=== PATIENT | female | born 1960 | race Caucasian/White ===

== ENCOUNTER → 2016-12-08 | Day surgery (SDC) | payer OTHER ==
[2016-11-16 12:05] VITALS: BMI 42.0
[2016-11-27 13:52] VITALS: Ht 162.6 cm; Wt 110.4 kg
--- NOTE | 2016-11-27 14:15 | PAT Medication Instructions ---
Service Date November 27, 2016. Current Home Medication List Acetaminophen (Tylenol), 2 TABS PO Q6H PRN for Pain Clindamycin Hcl (Cleocin), 4 TABS PO UD PRN for DENTAL PROCEDURES Epinephrine (Epipen), 0.3 MG IM UD PRN for ALLERGIC REACTION Fluticasone Propionate (Nasal) (Flonase Allergy Relief), 2 SPRAYS MICHAEL DAILY PRN for PRN Metoprolol Succ (Toprol Xl) (Toprol-Xl), 50 MG PO QAM Multivitamin (Multivitamin), 1 TAB PO QAM Pantoprazole (Protonix), 20 MG PO QAM Rizatriptan Benzoate (Maxalt), 5 MG PO DAILY PRN for Migraine Medication Instructions For Your Scheduled Surgery - Hold the following medications the morning of surgery: Multivitamin (Multivitamin), 1 TAB PO QAM - Take the following medications the morning of surgery with a sip of water OTHERWISE NOTHING TO EAT OR DRINK AFTER MIDNIGHT: Acetaminophen (Tylenol), 2 TABS PO Q6H PRN for Pain (may take if needed up to 4 hours prior to surgery) Fluticasone Propionate (Nasal) (Flonase Allergy Relief), 2 SPRAYS MICHAEL DAILY PRN for PRN Metoprolol Succ (Toprol Xl) (Toprol-Xl), 50 MG PO QAM Pantoprazole (Protonix), 20 MG PO QAM Rizatriptan Benzoate (Maxalt), 5 MG PO DAILY PRN for Migraine - Take the following medications as scheduled the night before surgery: Acetaminophen (Tylenol), 2 TABS PO Q6H PRN for Pain If you have any questions please call us at [phone] or [phone] or [phone]
[2016-11-27 15:21] LABS: HEMATOCRIT 40.9 % (37-47); MEAN CELL VOLUME 83.8 fL (80-100); MEAN CORPUSCULAR HEMOGLOBIN 26.4 pg (25-34); MEAN CORPUSCULAR HGB CONC 31.5 g/dl (32-36); MEAN PLATELET VOLUME 9.8 fL (7.4-10.4); PLATELET COUNT 267 K/uL (130-400); RED BLOOD COUNT 4.88 M/uL (4.2-5.4); WHITE BLOOD COUNT 7.92 K/uL (4.8-10.8)
[~2016-12-08] VITALS: Ht 162.6 cm; Wt 110.4 kg
[~2016-12-08] MED LIST: ACET-1256 PO; BUPIVACAINE/EPINEPHRINE 0.5% MPF 1:200,000 30 ML VIAL ONE; CLIN150C PO; CLINDAMYCIN 900MG IV SCH; CLINDAMYCIN IV SCH; D5W IV SCH; DEXAMETHASONE SOD INJ 4 MG/ML VIAL ONE; EPP3/2 IM; EpHEDrine SULFATE INJ 50 MG/ML AMP IV PRN; FENTANYL CITRATE INJ 50 MCG/1 ML 2 ML VIAL ONE; FLUMAZENIL 0.1 MG/1 ML 10 ML VIAL IV PRN; FLUT0.15 NAE; HYDROmorphone INJ 1 MG/ML SYR IV PRN; LABETALOL HCL IV 5 MG/ML 20ML IV PRN; LACTATED RINGER'S 1000ML 1,000 ML IV SCH; LIDOCAINE HCL 2% 2 ML VIAL (20MG/ML) ONE; METO50TA7 PO; MIDAZOLAM HCL 1 MG/ML 2ML VIAL ONE; MULT-506 PO; MoRPHine SULFATE PF 1 MG/ML 10 ML AMP/VIAL ONE; NALOXONE HCL 0.4 MG/1 ML VIAL/CARP IV PRN; ONDANSETRON INJ 2 MG/ML 2 ML VIAL IV PRN; ONDANSETRON INJ 2 MG/ML 2 ML VIAL ONE; OXYCODONE/ACETAMINOPHEN 5-325 TAB PO PRN; PROMETHAZINE HCL INJ 12.5 MG in SODIUM CHLORIDE 0.9% 50ML 50 ML IV PRN; PROPOFOL IV EMULSION 10 MG/ML 20 ML VIAL IV ONE; PRT/20 PO; RIZA5TAB10 PO; SODIUM CHLORIDE 0.9% 1000ML 1,000 ML IV SCH
--- NOTE | 2016-12-08 06:48 | History & Physical Bridge Note ---
H&P Re-Evaluation Bridge Note: I have examined the patient, reviewed the History & Physical and in the interval since the performance of the History & Physical I have noted the following changes of clinical significance: No changes noted
--- NOTE | 2016-12-08 06:50 | Discharge Instructions ---
Discharge Instructions Date of Service Dec 08, 2016. Visit Reason for Visit: Left Knee Lateral Meniscus Tear Discharge Discharge Diagnosis / Problem: same/djd Discharge Goals Goal(s): Decrease discomfort, Improve function Medications Stopped Medications Name(s): na Restart Stopped Medication(s): use all scripts as directed Activity Recommendations Activity Limitations: as noted below Lifting Limitations: until after follow-up appointment Exercise/Sports Limitations: until after follow-up appointment May Resume Sexual Activity: when tolerated Shower/Bathe: keep incision dry Driving or Machine Use: resume 1 day after discharge Weightbearing Status: Left weightbearing (as tolerated) Anesthesia . Post Anesthesia Instructions: If you have had General Anesthesia or IV Sedation: * Do not drive today. * Resume driving when surgeon permits. * Do not make important decisions or sign legal documents today. * Call surgeon for: 1. Temperature elevations greater than 101 degrees F. 2. Uncontrollable pain. 3. Excessive bleeding. 4. Persistent nausea and vomiting. 5. Medication intolerance (nausea, vomiting or rash). * For nausea and vomiting use only clear liquids such as: tea, soda, bouillon until nausea subsides, then gradually increase diet as tolerated. * If you have any concerns or questions, call your surgeon's office. If physician is unavailable and it is an emergency, call 911 or go to the nearest emergency room. . Instructions / Follow-Up Instructions / Follow-Up The following are instructions to follow after your Arthroscopic Knee Surgery. ACTIVITY RECOMMENDATIONS: * Minimize activity until your first visit after surgery. * No excessive walking, jogging, sports or laboring. * Return to activity is individualized. Most patients are able to return to every day activities within one month. * Return to sports or intensive labor usually occurs at 2-3 months. * Driving is not permitted until at least your first postoperative visit at a minimum. Please ask your doctor when it is safe to resume driving. If you have an automatic vehicle and your left leg has been operated on, then you may begin driving as soon as you are comfortable and can drive safely. SCHOOL/WORK RECOMMENDATIONS: * You may return to sedentary work or school when you are feeling more comfortable. This is usually 3-7 days after surgery. * Expect increased discomfort with increased activity. Continue to elevate and ice the leg as much as possible. MEDICATIONS: * You will have a prescription for pain medication and an anti-inflammatory medication after surgery. * Use the pain medication for severe pain and the anti-inflammatory for less severe pain. Once the pain medication has run out, try to use the anti-inflammatory medication. If this is not effective, contact the office for assistance. * The pain medication may cause nausea, constipation and drowsiness. You should see how they affect you before driving or similar activity. * The anti-inflammatory medication may cause stomach upset and bleeding. If this occurs let your doctor know immediately . * Take a stool softener like Colace or a laxative like Senokot to prevent constipation. DIET: * Resume previous diet. SPECIAL CARE: ICE: You have the option of an ice cooler, gel packs or ice bags. * If you have an ice cooler, refer to the instructions for that device. The ice cooler may be used continuously. * If you do not have an ice cooler, you will need to use ice bags or gel packs. Do not apply ice directly to the skin. Use a thin dressing or miguel shirt between the skin and ice bag. Apply ice for 20-30 minutes and repeat every 2-4 hours. This is especially important for the first 7-10 days after surgery. Once the pain improves, use ice as needed. ELEVATION: * Keep your leg elevated at or above the level of your heart as much as possible. * Expect some increased discomfort and swelling if you are standing for any length of time. * When lying down, avoid placing anything under your knee. Rather, prop your leg up by placing several pillows under your heel or calf. DRESSING: * Your dressing will be changed at your first therapy appointment approximately 4-5 days after surgery. Band-aids, tape strips or gauze may be applied. You may then change your dressing daily. * Reapply dressing followed by the Alexei wrap or Tubi-outcomes specialist stockinet and EBIce cooling pad (if chosen). * Always wash your hands prior to touching the incision area. * Once the stitches are removed, you may leave the wound open to air or cover with an Alexei wrap or Tubi-outcomes specialist stockinet. * If you have been given a white elastic stocking (ARDEN hose), wear as much as possible for the first 1-3 weeks depending on swelling. * Expect some bloody drainage for the first few days after surgery. * Leave the tape strips, if present, in place for 5-7 days. * Band-aids and gauze may be changed daily. CRUTCHES: * You will need to use crutches after surgery. * You may gradually progress to full weight bearing as tolerated and wean off the crutches unless otherwise advised. * Your therapist can provide assistance weaning off crutches. * Patients who have a microfracture done may need to be toe-touch weight- bearing for 4-6 weeks. BATHING: * You may shower or sponge-bathe immediately after surgery. * The dressing will need to be covered with a plastic bag or plastic wrap until the dressing is changed on the fourth or fifth day after surgery. * Once the dressing has been changed on the fourth or fifth day after surgery, you may shower and get the incision wet. * Wash with regular soap and water. * Do not bathe (submerge the incision), soak, swim or use a hot tub until the incision is completely healed over with normal skin and the doctor has given the OK to proceed. * There is no need to apply any ointments, powders or salves to your incision. * Do not apply alcohol or hydrogen peroxide directly to the incision. * Diluted peroxide (50:50 mixture with sterile saline) may be used to clean dried blood from around the incision area. BRACE: * Bracing is generally not needed after routine Arthroscopic Knee surgery. THERAPY: * You will begin therapy four or five days after surgery. * Organized therapy with the therapist is important for the first 4-6 weeks after surgery. During that time you will attend therapy 1-3 times per week. * You will also need to do daily exercises for range of motion and strength as instructed. PROBLEMS/QUESTIONS: * If you have any problems such as severe pain, numbness, tingling or high fevers or if you have any questions, please contact the office at [phone]. * It is not uncommon to have some numbness and tingling after the surgery especially if you have had a nerve block done. This should gradually improve over the first 1- 2 days. If this persists longer or worsens please contact the office. FOLLOW UP VISIT: * If not already scheduled, please call the office at to schedule a follow-up appointment for 10 days, 6 weeks and 3 months after surgery. Diet Recommendations Recommended Home Diet: resume previous diet Procedures Procedures Performed: debridement left knee PLM Pending Studies Studies pending at discharge: no Medical Emergencies . Who to Call and When: Medical Emergencies: If at any time you feel your situation is an emergency, please call 911 immediately. . Non-Emergent Contact Non-Emergency issues call your: Specialist Call Non-Emergent contact if: temperature is above 101.5 . . "Provider Documentation" section prepared by Daniel Wooten. .
--- NOTE | 2016-12-08 08:11 | [facility] Post Operative Brief Note ---
Immediate Operative Summary Operative Date Dec 08, 2016. Pre-Operative Diagnosis Left Knee Lateral Meniscus Tear Post-Operative Diagnosis Same Procedure(s) Performed Left Knee Arthroscopy, Partial Lateral Meniscectomy Surgeon Dr. Wooten Retention Specialist Surgeon(s) Wanda Rucker PA-C Estimated Blood Loss Trace Findings lM tear with cyst Fluids (cc crystalloids) 1000cc Specimens None Drains none Anesthesia LMA Complication(s) None Disposition Recovery Room / PACU
--- NOTE | 2016-12-08 08:57 | OPERATIVE REPORT ---
DATE OF OPERATION: 12/08/2016 SURGEON: Dr. Wooten. 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 POSTOPERATIVE DIAGNOSIS: Same. OPERATION PERFORMED: Subtotal lateral meniscectomy, anterior half with parameniscal cyst evacuation. Exam under anesthesia, diagnostic arthroscopy and the subtotal lateral meniscectomy are the procedures again arthroscopically. PERIOPERATIVE SITUATION: Medically cleared female with intractable knee pain with physical exam, x-ray and MRI scan consistent with early degenerative disease, large anterior horn of the lateral meniscus tear with parameniscal cyst, intra-articular locking and catching. DESCRIPTION OF PROCEDURE: The patient appropriately identified, site verified, consent verified, 2 grams of Ancef confirmed as being given. The left lower extremity was examined revealing no ligamentous instability, valgus alignment, old incisions, early degenerative changes. The knee was then sterilely injected with 20 mL 0.5% Marcaine with epinephrine and 5 mg of Duramorph for postoperative pain control, tolerated well. Knee was then prepped and draped in usual routine fashion. No tourniquet applied or utilized. Inframedial and inferolateral portals then made and injected with 3 mL of 0.5% Marcaine plain. Inspection of the joint revealed some articular synovitis which was debrided along the gutters. The patella had some minor articular changes of trochlear, minor articular changes to the medial compartment, had some minor articular changes. The medial meniscus was normal. There was a large anterior horn lateral meniscus tear, degenerative parameniscal cyst cod in the notch. This was reduced and then resected, it was very vascular, the thermal device was used to coagulate the vessels. The anterior horn of the meniscus was then resected, was very mucoid, degenerated and the shaver took care of most of it, some minor trimming with the hand instrumentation and the posterior half of the meniscus was stable. The articular surface of the lateral compartment were grade 1-2. The knee was then copiously irrigated. All instruments and fluid removed. The portals closed with 4-0 nylon, dressed with Xeroform, 4 x 4 gauze, sterile Webril, ABD pads and above knee ARDEN stocking. The patient will be weightbearing as tolerance, range of motion full. DVT prophylaxis per protocol. Will start that tomorrow. Follow up for PT in a.m. for dressing change. Overall prognosis for this knee is guarded based on previous surgeries and early degenerative disease for her age. I attest to the content of the Intraoperative Record and any orders documented therein. Any exception s are noted below.
[2016-12-08 09:32] VITALS: BP 123/71; PULSE 69; TEMP 36.4; O2SAT 97
--- NOTE | 2016-12-08 09:35 | Anesthesia Progress Nt - [facility] ---
Anesthesia Post Op Note Date & Time Dec 08, 2016 at 09:35 Vital Signs Pain Intensity: 3 Vital Signs Past 12 Hours Date Time Temp Pulse Resp B/P (MAP) Pulse Ox O2 Delivery O2 Flow Rate FiO2 12/08/16 08:50 36.3 68 16 114/73 (87) 99 Room Air 12/08/16 08:42 36.0 65 20 120/76 98 Room Air 12/08/16 08:42 65 15 120/76 100 12/08/16 08:42 66 15 12/08/16 08:37 67 20 124/76 99 12/08/16 08:37 67 20 12/08/16 08:32 70 15 12/08/16 08:32 96 15 100 12/08/16 08:27 68 14 12/08/16 08:27 74 14 107/64 100 12/08/16 08:22 73 14 12/08/16 08:22 73 14 115/68 100 12/08/16 08:19 129/75 12/08/16 08:17 36.0 79 20 121/75 99 Mask 6 12/08/16 06:37 36.3 72 18 172/98 (122) 96 Room Air Notes Mental Status: alert / awake / arousable, participated in evaluation Pt Amnestic to Procedure: Yes Nausea / Vomiting: adequately controlled Pain: adequately controlled Airway Patency, RR, SpO2: stable & adequate BP & HR: stable & adequate Hydration State: stable & adequate Anesthetic Complications: no major complications apparent
--- NOTE | 2016-12-08 18:50 | OPERATIVE REPORT ---
PREOPERATIVE DIAGNOSIS: Left knee lateral meniscal tear with degenerative arthritis. POSTOPERATIVE DIAGNOSIS: Left knee same. PROCEDURE: Left knee arthroscopy with subtotal lateral meniscectomy and parameniscal cyst evacuation. SURGEON: Dr. Wooten. PIN CLEANER: Jorge Alberto Rucker PA-C. HISTORY OF PRESENT ILLNESS: This 56-year-old white female presented to the office with complaints of intractable lateral left knee pain. She did have an MRI confirming a lateral meniscal tear. The patient elected to proceed with surgical intervention after being educated about potential risks and outcomes. OPERATION: The patient was taken to the operating room where she was given general anesthetic. She was prepped and draped in the usual sterile fashion. Please see Dr. Wooten's operative report for specifics of the procedure. I was present for the entire case from initial patient positioning through final wound closure. Assistance was provided in patient positioning, arthroscopy, and final wound closure. The patient was taken to the recovery room in satisfactory condition.
== END | disposition home or self-care (01) ==
LOC: X.SURG 06:24
PROVIDERS: ATTEND Physical Medicine & Rehabilitation Sports Medicine
DX: M23.242 Derangement of anterior horn of lateral meniscus due to old tear or injury, left knee (principal); M17.9 Osteoarthritis of knee, unspecified; I10 Essential (primary) hypertension; E66.01 Morbid (severe) obesity due to excess calories; Z68.41 Body mass index [BMI] 40.0-44.9, adult; Z87.442 Personal history of urinary calculi; Z88.0 Allergy status to penicillin; Z98.818 Other dental procedure status; Z96.651 Presence of right artificial knee joint; Z96.642 Presence of left artificial hip joint; Z98.890 Other specified postprocedural states; Z90.89 Acquired absence of other organs; F17.200 Nicotine dependence, unspecified, uncomplicated; Z86.69 Personal history of other diseases of the nervous system and sense organs